=== PATIENT | female | born 1955 | race Hispanic/Latino ===

== ENCOUNTER 2021-12-01 06:53 | Observation (INO) | payer MEDICARE ==
[~2021-12-01] VITALS: Ht 157.5 cm; Wt 68.5 kg
[~2021-12-01 06:53] MED LIST: AMLODIPINE BESYL5 MG PO; ATORVASTATIN CA10 MG PO; CENTRUM ADULTS1 EACH PO; CETIRIZINE HCL10 MG PO; DETROL LA4 MG PO; FAMOTIDINE20 MG PO; MELOXICAM7.5 MG PO; METFORMIN HCL500 MG PO; METOPROLOL SUCC25 MG PO; VITAMIN D350 MCG PO
[2021-12-01] MEDS ORDERED: ROPIVACAINE 246.25 MG, EPINEPHRINE HCL 1:1000 1ML 0.5 MG, CLONIDINE HCL 0.08 MG, KETORO... INJ ONE ×5 (07:30)
[2021-12-01] MEDS ORDERED: DEXAMETHASONE SOD PHOS 10 MG/1 ML VIAL ONE (07:38)
[2021-12-01] MEDS ORDERED: GABAPENTIN 300 MG CAP ONE (07:38)
[2021-12-01] MEDS ORDERED: CELECOXIB 200 MG CAP ONE (07:38)
[2021-12-01] MEDS ORDERED: Vancomycin IV 1,000 MG ONE (11:25)
[2021-12-01] MEDS ORDERED: TRANEXAMIC ACID 20 ML ONE (11:25)
[2021-12-01] MEDS ORDERED: SODIUM CHLORIDE 0.9% 500ML 500 ML ONE (11:25)
[2021-12-01] MEDS ORDERED: LIDOCAINE HCL 2% LOCAL INJ 5 ML SDV VIAL INJ ONE (12:47)
[2021-12-01] MEDS ORDERED: ONDANSETRON HCL INJ 2MG/ML 2ML 2 MG/ML VIAL ONE (12:47)
[2021-12-01] MEDS ORDERED: ACETAMINOPHEN 1000 MG/100 ML IV ONE (12:47)
[2021-12-01] MEDS ORDERED: PROPOFOL IV EMULSION 10 MG/ML 20 ML VIAL ONE (12:47)
[2021-12-01] MEDS ORDERED: POVIDONE IODINE 0.05% 0.05 % ML PO ONE (12:47)
[2021-12-01] MEDS ORDERED: ACETAMINOPHEN 650 MG SUPP PR PRN (13:00)
[2021-12-01] MEDS ORDERED: ONDANSETRON HCL INJ 2MG/ML 2ML 2 MG/ML VIAL IV PRN (13:00)
[2021-12-01] MEDS ORDERED: DOCUSATE SODIUM 100 MG CAP PO PRN (13:00)
[2021-12-01] MEDS ORDERED: KETOROLAC TROMETHAMINE 30 MG/ML VIAL IV PRN (13:00)
[2021-12-01] MEDS ORDERED: DIPHENHYDRAMINE HCL INJ 50 MG/ML VIAL IV PRN (13:00)
[2021-12-01] MEDS ORDERED: MIDAZOLAM HCL 2 MG/2 ML VIAL ONE (13:21)
[2021-12-01] MEDS ORDERED: FENTANYL CITRATE/PF 100MCG/2 ML INJ ONE (13:21)
[2021-12-01 15:30] VITALS: BP 115/69
[2021-12-01] MEDS: SODIUM CHLORIDE 0.9% 1000ML 1,000 ML IV SCH ×2 (15:37→22:49)
[2021-12-01 16:22] VITALS: BP 115/69
[2021-12-01] MEDS: CELECOXIB 200 MG CAP PO SCH (17:19)
[2021-12-01] MEDS: HYDROCODONE/APAP 5MG-325MG TAB PO PRN (20:17)
[2021-12-01 20:55] VITALS: BP 119/78
[2021-12-01 21:00] VITALS: BP 119/78
[2021-12-01] MEDS ORDERED: ZOLPIDEM TARTRATE 5 MG TAB PO PRN (21:00)
[2021-12-01] MEDS: ASPIRIN 325 MG TAB PO SCH (21:39)
[2021-12-01] MEDS: AMLODIPINE BESYLATE 5 MG TAB PO SCH (21:39)
[2021-12-02 00:10] VITALS: BP 114/67
[2021-12-02 04:00] VITALS: BP 124/65
[2021-12-02] MEDS: HYDROCODONE/APAP 5MG-325MG TAB PO PRN ×3 (04:31→13:24)
[2021-12-02 05:05] LABS: BASOPHILS % 0.1 % (0.0-1.0); HEMATOCRIT 38.1 % (34.2-44.1); HEMOGLOBIN 12.3 g/dL (12.0-16.0); LYMPHOCYTES # (AUTO) 1.6 (1.0-3.2); LYMPHOCYTES % 14.7 % (18.0-39.1); MEAN CORPUSCULAR HEMOGLOBIN 28.8 pg (28-32); MEAN CORPUSCULAR HGB CONC 32.3 g/dL (31-35); MEAN CORPUSCULAR VOLUME 89.2 fL (81-99); MONOCYTES # (AUTO) 0.9 (0.2-0.8); MONOCYTES % 8.5 % (4.4-11.3); NEUTROPHILS % 76.2 % (38.7-80.0); PLATELET COUNT 229 x10e3/uL (140-360); RED BLOOD COUNT 4.27 x10e6/uL (3.6-5.1); RED CELL DISTRIBUTION WIDTH 11.9 % (11.7-14.4)
[2021-12-02 05:25] LABS: CALCIUM 8.5 mg/dL (8.4-10.2); CREATININE, SERUM 0.67 mg/dL (0.57-1.11)
[2021-12-02 07:44] VITALS: BP 111/68
[2021-12-02] MEDS ORDERED: METFORMIN HCL 500 MG TAB PO SCH (08:00)
[2021-12-02] MEDS: AMLODIPINE BESYLATE 5 MG TAB PO SCH (08:07)
[2021-12-02] MEDS: CELECOXIB 200 MG CAP PO SCH (08:07)
[2021-12-02] MEDS: ASPIRIN 325 MG TAB PO SCH (08:07)
[2021-12-02] MEDS ORDERED: FAMOTIDINE 20 MG TAB PO SCH (09:00)
[2021-12-02] MEDS ORDERED: AMLODIPINE BESYLATE 5 MG TAB PO SCH (09:00)
[2021-12-02] MEDS ORDERED: ATORVASTATIN 10 MG TAB PO SCH (09:00)
[2021-12-02] MEDS ORDERED: TOLTERODINE TARTRATE 4 MG CAPCR PO SCH (09:00)
[2021-12-02] MEDS ORDERED: METOPROLOL SUCCINATE 25 MG TAB XL PO SCH (09:00)
[2021-12-02 11:07] VITALS: BP 139/75
[2021-12-02] MEDS: SODIUM CHLORIDE 0.9% 1000ML 1,000 ML IV SCH (11:30)
[2021-12-02] MEDS ORDERED: ACETAMINOPHEN 1000 MG/100 ML IV PRN (13:00)
[2021-12-02] MEDS ORDERED: ONDANSETRON HCL 4 MG ORAL DISINTEGRATING TAB PO PRN (13:30)
== END 2021-12-02 14:50 | disposition home or self-care (01) ==
LOC: OR 06:53 → PACU V 13:03 → MED/SURG 15:21
PROVIDERS: ADMIT Specialist; ATTEND Specialist
DX: M17.0 Bilateral primary osteoarthritis of knee (principal); E78.5 Hyperlipidemia, unspecified; I11.9 Hypertensive heart disease without heart failure; E11.9 Type 2 diabetes mellitus without complications; N32.81 Overactive bladder; M87.9 Osteonecrosis, unspecified; Z20.822 Contact with and (suspected) exposure to COVID-19
CPT/HCPCS: 0223U; 27447; 36415 ×3; 71046; 72170; 80048; 82948 ×2; 85025; 86850; 86900; 86920; 94799; 97110; 97116 ×2; 97161; 97530 ×2; C1713; C1776 ×4; G0378 ×2; J0131; J0171; J0690 ×2; J1100; J1885; J2001; J2405; J2704; J2795; J3370; J7030; J7040; J2250; J3010